=== PATIENT | female | born 1950 | race Hispanic/Latino ===

== ENCOUNTER → 2019-06-12 | Outpatient (CLI) | payer OTHER | END | disposition home or self-care (01) | LOC: RAH 10:43 | PROVIDERS: ATTEND Internal Medicine | DX: Z13.6 Encounter for screening for cardiovascular disorders (principal); K44.9 Diaphragmatic hernia without obstruction or gangrene | CPT/HCPCS: 75571 ==

== ENCOUNTER → 2021-02-01 | Outpatient (CLI) | payer MEDICARE | END | disposition home or self-care (01) | LOC: RAH 10:08 | PROVIDERS: ATTEND Internal Medicine | DX: Z12.31 Encounter for screening mammogram for malignant neoplasm of breast (principal) | CPT/HCPCS: 77067 ==

== ENCOUNTER → 2023-02-01 | Outpatient (CLI) | payer MEDICARE ==
[~2023-02-01] MED LIST: BENZ-39 PO
== END | disposition home or self-care (01) ==
LOC: RAH 14:03
PROVIDERS: ATTEND Internal Medicine
DX: Z12.31 Encounter for screening mammogram for malignant neoplasm of breast (principal); N64.89 Other specified disorders of breast
CPT/HCPCS: 77067

== ENCOUNTER → 2023-02-23 | Outpatient (CLI) | payer MEDICARE | END | disposition home or self-care (01) | LOC: RAH 13:34 | PROVIDERS: ATTEND Internal Medicine | DX: R92.8 Other abnormal and inconclusive findings on diagnostic imaging of breast (principal) | CPT/HCPCS: 76641 ==

== ENCOUNTER → 2023-03-24 | Outpatient (CLI) | payer MEDICARE | END | disposition home or self-care (01) | LOC: RAH 08:16 | PROVIDERS: ATTEND Internal Medicine | DX: R59.0 Localized enlarged lymph nodes (principal); R92.8 Other abnormal and inconclusive findings on diagnostic imaging of breast | CPT/HCPCS: 76882 ==

== ENCOUNTER → 2023-12-13 | Outpatient (CLI) | payer MEDICARE | END | disposition home or self-care (01) | LOC: RAH 15:02 | PROVIDERS: ATTEND Internal Medicine | DX: R92.8 Other abnormal and inconclusive findings on diagnostic imaging of breast (principal) | CPT/HCPCS: 76641 ==

== ENCOUNTER 2025-03-02 14:32 | Emergency (ER) | payer MEDICARE ==
[~2025-03-02] VITALS: Ht 167.6 cm; Wt 74.4 kg
--- NOTE | 2025-03-02 15:20 | ERN ---
General Chief Complaint: Mechanical Fall Stated Complaint: FALL 5 DAYS AGO. LEFT HIP LEFT LEG PAIN Time Seen by MD: 14:37 Time Seen by Midlevel: 14:37 Source: patient History of Present Illness Initial Comments Patient is a 74-year-old female presenting to the emergency department for evaluation of left hip pain. Patient states that five days ago she was outside putting her trash cans inside when a large haley of wind knocked her over her feet. She states one of the trash cans bumped into her and she fell onto another trash can hitting the left side of her hip. She was able to get up on her own and walk however over the last couple of days she has had an increased pain to the left hip. She also developed pain to her left calf that is worse with walking. Denies any head injury or loss of consciousness. Denies any other symptoms. Allergies: Coded Allergies: Penicillins (Unverified Allergy, Unknown, 10/29/22) aspirin (Unverified Allergy, Unknown, 10/29/22) codeine (Unverified Allergy, Unknown, 10/29/22) diphenhydramine (Unverified Allergy, Unknown, 10/29/22) guava (Unverified Allergy, Unknown, 10/29/22) iodine (Unverified Allergy, Unknown, 10/29/22) sulfur dioxide (Unverified Allergy, Unknown, 10/29/22) tetracycline (Unverified Allergy, Unknown, 10/29/22) watermelon (Unverified Allergy, Unknown, 10/29/22) Home Meds Active Scripts Benzonatate (Tessalon Perles) 100 Mg Cap, 100 MG PO TID PRN for COUGH, #30 CAP 0 Refills Prov:LON GARCIA MD 10/30/22 Past Medical History Past Medical History: Arthritis, Asthma, GERD, High Cholesterol, Hypertension Past Surgical History: Other Surgical History Other: HEMORRHOID SX ROS Dictation CONSTITUTIONAL: Negative except for HPI HEAD/FACE: Negative except for HPI EENT: Negative except for HPI RESPIRATORY: Negative except for HPI GASTROINTESTINAL/ABDOMINAL: Negative except for HPI GENITOURINARY: Negative except for HPI MUSCULOSKELETAL: Negative except for HPI INTEGUMENTARY: Negative except for HPI NEUROLOGICAL/PSYCH: Negative except for HPI HEMATOLOGIC/LYMPHATIC: Negative except for HPI All Systems Negative, Except as noted above. 13 point review of systems assessed and all negative except for above. Physical Exam Physical Exam Dictation Vital Signs reviewed General Appearance: Alert, oriented x 3, no acute distress, well developed, nourished. Head and Face: non-traumatic. Eyes: PERRL, pink conjunctivas, eyelid no trauma, anterior chamber with arcus senilis. Ears: Pinnas intact and no signs of trauma or erythema ear canals clear and no discharge TM no erythema Nose: No discharge, no bleeding. Oropharynx: Mouth normal, tongue pink, pharynx clear,no erythema, tonsils no exudates, no abscesses noted, mucous membrane moist Neck: Supple, non-tender, no thyromegaly, no masses, no JVD, no bruits Breast:Deferred Chest:No tenderness, no crepitus, no paradoxical movement, no retractions Lungs:Clear, well-ventilated, symmetric, no rales, no wheezing, no rhonchi, no stridor, good breath sounds bilaterally Heart: Regular rate, regular rhythm, no murmur, no gallops Vascular: no peripheral edema, Abdomen: Soft, positive bowel sounds, nondistended, no guarding, nontender, no rebound, no masses no hepatomegaly, no splenomegaly, no Silva's sign, no hernias. Rectal: Deferred Genital: Deferred Neurological: Normal speech, motor function intact, sensory function intact Musculoskeletal: Neck nontender, full range of motion, back nontender, full range of motion, Extremities: Tenderness over the left lateral hip, full range of motion Skin: Color pink, dry, no turgor, no rash, no lacerations, no abrasions, no contusions. Lymphatic: Deferred MDM MDM: Patient is a 74-year-old female presenting to the emergency department for evaluation of left hip pain. Patient states that five days ago she was outside putting her trash cans inside when a large haley of wind knocked her over her feet. She states one of the trash cans bumped into her and she fell onto another trash can hitting the left side of her hip. She was able to get up on her own and walk however over the last couple of days she has had an increased pain to the left hip. She also developed pain to her left calf that is worse with walking. Denies any head injury or loss of consciousness. Denies any othe r symptoms. On physical examination patient has tenderness over the left lateral hip. There was no leg shortening or externally/internally rotation. No obvious signs of external trauma. Patient was road tested and was unable to bear weight secondary to pain. Hip x-ray does not reveal any obvious acute fracture or dislocation however on repeat examination the patient was still unable to ambulate secondary to pain. A CT scan of the pelvis was obtained to rule out an occult fracture. CT of the pelvis reveals no acute fracture or dislocation. Patient was many allergies to medications in his afraid to try any new medication. I offered gabapentin but she ultimately declined. She will continue with Tylenol at home as needed. Differential diagnosis: Hip fracture, hip contusion, hip dislocation, There are no social concerns with this patient. Prescription drug management Prescriptions will include: None Medical management and examination interpretation discussions were had by me with other qualified healthcare professionals as indicated for the patient's care. ED Course Orders Procedure Category Date Status Time Hip Unilat 4vw Left RAD 03/02/25 Resulted 14:45 Ct Pelvis W/O Contrast CT 03/02/25 Resulted 16:15 Morphine 2mg Syg PHA 03/02/25 Complete (Morphine 2mg Syg) 16:30 Gabapentin 100 Mg Cap PHA 03/02/25 Complete (Neurontin 100 Mg 16:30 Current Medications Medications (Trade) Dose Ordered Sig/Farzana Route PRN Reason Start Time Stop Time Status Last Admin Dose Admin Gabapentin (NEURontin 100 mg CAP) 100 mg ONCE ONCE PO 03/02/25 16:30 03/02/25 16:31 DC 03/02/25 17:18 Morphine Sulfate (morPHINE 2MG SYG) 1 mg ONCE ONCE IM 03/02/25 16:30 03/02/25 16:27 DC Vital Signs Date Time Temp Pulse Resp B/P (MAP) Pulse Ox O2 Delivery O2 Flow Rate FiO2 03/02/25 14:50 98.1 89 16 176/80 98 Room Air* 0 21 03/02/25 14:33 98.2 87 16 171/80 96 Room Air 0 [facility] [address] [place] [id number] IMAGING REPORT Signed PATIENT: BRITTANI CLEMONS MR#: [id number] : 1950 SEX: F AGE: 74 LOCATION: [facility] ORDER [id number] STATUS: REG ER REPORT#: [id number] SERVICE 161 REASON: r/o occult fracture of left hip. Pt unable to bear weight ORDERING PHYSICIAN: SIOBHAN GUY PROCEDURE: PELVIS WO - CT PELVIS W/O CONTRAST Exam Type: CT pelvis without contrast Clinical Information: r/o occult fracture of left hip. Pt unable to bear weight Findings: The visualized pelvic bowel loops are unremarkable. No free fluid or fluid collections of the pelvis are seen. The pelvic viscera are normal in CT appearance. The perirectal fat planes are clear. The visualized osseous elements are normal for the patient's age. IMPRESSION: NEGATIVE CT SCAN OF THE PELVIS WITHOUT CONTRAST. No fractures. DICTATED BY: KEATON REAVES MD DATE: 03/02/251654 ELECTRONICALLY SIGNED BY: KEATON REAVES MD DATE: 03/02/251658 [place] [address] IMAGING REPORT Signed PATIENT: BRITTANI CLEMONS MR#: [id number] : 1950 SEX: F AGE: 74 LOCATION: ED ORDER [id number] STATUS: REG ER REPORT#: [id number] SERVICE 1445 REASON: fall ORDERING PHYSICIAN: SIOBHAN GUY PROCEDURE: HIP U 4V L - HIP UNILAT 4VW LEFT Exam Type: HIP UNILAT 4VW LEFT Clinical Information: fall Comparison: None Findings: The bone examination is unremarkable. No fractures or dislocations are seen. No radiopaque foreign bodies are noted. Soft tissues are preserved. IMPRESSION: Normal examination. DICTATED BY: KEATON REAVES MD DATE: 03/02/251618 ELECTRONICALLY SIGNED BY: KEATON REAVES MD DATE: 03/02/251621 DX & DISP Disposition: Discharge Departure Impression: Primary Impression: Contusion of left hip Condition: Stable Additional Instructions: Your x-ray and CT scan of the hip does not show any acute fracture or dislocation. Continue with Tylenol as needed for pain at home. Follow up with your primary care doctor in 2-3 days for repeat evaluation. Return to the ER for any new or worsening symptoms. Referrals: AMPARO ESTRADA MD (PCP) Time of Disposition: 17:16 I have reviewed the case, and I agree with, Diagnosis and Plan I performed the substantive portion of the visit. I have reviewed and personally made and approve the management plan that is documented in the note by myself or the GLADYS. I acknowledge for responsibility for the patient's management plan. SIOBHAN GUY Mar 02, 2025 15:20
--- NOTE | 2025-03-02 16:22 | HMCIMG ---
Exam Type: HIP UNILAT 4VW LEFT Clinical Information: fall Comparison: None Findings: The bone examination is unremarkable. No fractures or dislocations are seen. No radiopaque foreign bodies are noted. Soft tissues are preserved. IMPRESSION: Normal examination.
[2025-03-02] MEDS ORDERED: morPHINE 2 MG SYG IM ONE (16:30)
--- NOTE | 2025-03-02 16:59 | HMCIMG ---
Exam Type: CT pelvis without contrast Clinical Information: r/o occult fracture of left hip. Pt unable to bear weight Findings: The visualized pelvic bowel loops are unremarkable. No free fluid or fluid collections of the pelvis are seen. The pelvic viscera are normal in CT appearance. The perirectal fat planes are clear. The visualized osseous elements are normal for the patient's age. IMPRESSION: NEGATIVE CT SCAN OF THE PELVIS WITHOUT CONTRAST. No fractures.
[2025-03-02] MEDS: GABApentin 100 MG CAPSULE PO ONE (17:18)
[2025-03-02 17:31] VITALS: BP 158/70; PULSE 90; RESP 16; TEMP 98; O2SAT 96
== END 2025-03-02 17:31 | disposition home or self-care (01) ==
LOC: EDH 14:32
DX: S70.02XA Contusion of left hip, initial encounter (principal); M19.90 Unspecified osteoarthritis, unspecified site; E78.00 Pure hypercholesterolemia, unspecified; I10 Essential (primary) hypertension; J45.909 Unspecified asthma, uncomplicated; Z88.0 Allergy status to penicillin; Z88.1 Allergy status to other antibiotic agents; Z88.5 Allergy status to narcotic agent; Z88.6 Allergy status to analgesic agent; Z88.8 Allergy status to other drugs, medicaments and biological substances; Z91.041 Radiographic dye allergy status; W22.8XXA Striking against or struck by other objects, initial encounter; Y93.89 Activity, other specified; Y92.89 Other specified places as the place of occurrence of the external cause; Y99.8 Other external cause status
CPT/HCPCS: 72192; 73503; 99284